=== PATIENT | female | born 1955 | race Caucasian/White ===

== ENCOUNTER 2022-03-14 00:25 | Day surgery (SDC) | payer MEDICARE, SELFPAY ==
[2022-02-28 08:27] VITALS: BMI 22.2
--- NOTE | 2022-03-13 12:34 | WPDANESEPPF ---
Anes - Initial Pre Proc Eval Procedure: Operation Date: 03/14/22 09:30 Proposed Procedures p Screening Colonoscopy - Dillon Eldridge MD Date/Time: 03/13/22 12:34 Surgeon: Dillon Eldridge MD Pre Op Diagnosis: hx of colon polyps Patient Data Age: 66 Gender: F Height: 1.6 m Weight: 57 kg Allergies Allergy/AdvReac Type Severity Reaction Status Date / Time CERUMIX Allergy Intermediate RASH Uncoded 03/14/22 08:43 ITCHING IN EARS Home Medications Medication Instructions Recorded Confirmed Type calcium carbonate-vitamin D3 1 tablet PO DAILY 02/28/22 03/14/22 History [Calcium + D] glucos sul [id number] 1 cap PO DAILY 02/28/22 03/14/22 History [Glucosamine Chondroitin] levothyroxine 125 mcg PO DAILY 02/28/22 03/14/22 History metoprolol succinate 25 mg PO DAILY 02/28/22 03/14/22 History Patient hx anesthesia problems: none Family hx anesthesia problems: none Results Review: All pre-operative results and documents have been reviewed as part of the pre-operative evaluation. [facility] Past Medical History Medical History (Updated 03/14/22 @ 09:30 by Dillon Eldridge MD) Hypothyroidism Irregular heart beat Social History Social History Smoking status: Never smoker Alcohol intake: current Alcohol use details: seldom Living arrangements: with family Spiritual care concerns: No Anes - Eval Final PreProcedure Day of Procedure 03/13/22 12:34 Patient weight: normal Heart: regular rate and rhythm Lungs: clear to auscultation and normal air movement Airway: Mallampati scale class II Neurological: alert and oriented Last oral intake: >/= 8 hours ASA classification: II Emergent: no Anesthetic plan: proceed Anesthesia type and monitoring: general GIVS and standard monitoring Results Review: All pre-operative results and documents have been reviewed as part of the pre-operative evaluation. Informed Consent: The patient's anesthetic plan and its attendant risks and benefits were discussed with the patient/family/POA. Questions were solicited and answers provided to the satisfaction of the patient/family/POA.
[2022-03-14 08:44] VITALS: BP 137/90; PULSE 91; RESP 16; TEMP 36.6; O2SAT 99
[2022-03-14] MEDS: LACTATED RINGERS 1,000 ML 150 ML IV CONT (08:53)
--- NOTE | 2022-03-14 09:28 | P.CONGI_ITS ---
Assessment and Plan Assessment and plan (1) History of colon polyps: Code(s): Z86.010 - Personal history of colonic polyps Status: Acute Assessment and Plan: Patient had benign colon polyp removed from the colon 2017 plan is for surveillance at this time further recommendations will be given after endoscopy. (2) Family history of colonic polyps: Code(s): Z83.71 - Family history of colonic polyps Status: Acute Assessment and Plan: Patient's sister has been identified as having colon polyps. Plan for surveillance colonoscopy at intervals in the future. Initially at 5 year intervals suggested. GI Consult Note Consult date/time: 03/14/22 09:28 HPI: Lalitha Bliss is a 66 year old female Presents for screening colonoscopy . Patient and has a history of a small benign colon polyp removed in 2017. Family history is significant her sister has had colon polyps. Patient states that her current weight appetite bowel movements are normal. She denies abdominal pain. She has had no bleeding. She presents today for neoplasia screening. Review of Systems Review of Systems: All systems reviewed & are unremarkable except as noted in HPI and below PMFSH Past Medical History Medical History (Updated 03/14/22 @ 09:30 by Dillon Eldridge MD) Hypothyroidism Irregular heart beat Social History Social History Smoking status: Never smoker Alcohol intake: current Alcohol use details: seldom Living arrangements: with family Spiritual care concerns: No Meds Home Medications and Allergies Home Medications Medication Instructions Recorded Confirmed Type calcium carbonate-vitamin D3 1 tablet PO DAILY 02/28/22 03/14/22 History [Calcium + D] glucos sul [id number] 1 cap PO DAILY 02/28/22 03/14/22 History [Glucosamine Chondroitin] levothyroxine 125 mcg PO DAILY 02/28/22 03/14/22 History metoprolol succinate 25 mg PO DAILY 02/28/22 03/14/22 History Allergies Allergy/AdvReac Type Severity Reaction Status Date / Time CERUMIX Allergy Intermediate RASH Uncoded 03/14/22 08:43 ITCHING IN EARS Vital Signs Vital Signs - 24 hr 03/14/22 08:44 Temperature 97.9 F Pulse Rate 91 Respiratory Rate 16 Blood Pressure 137/90 Pulse Oximetry 99 Exam Narrative: Physical exam reveals patient to be alert. vital signs are stable. HEENT exam is unremarkable. Patient is anicteric. Lungs are clear to auscultation and percussion. Heart is without murmur or extra sounds. Abdominal exam is soft nontender with no hepatosplenomegaly. Digital external rectal exam is normal.
[2022-03-14 09:56] VITALS: BP 112/70; PULSE 71; RESP 18; O2SAT 100
[2022-03-14 10:06] VITALS: BP 125/100; PULSE 72; RESP 16; O2SAT 100
[2022-03-14 10:16] VITALS: BP 121/76; PULSE 65; RESP 18; O2SAT 100
== END 2022-03-14 10:20 | disposition home or self-care (01) ==
PROVIDERS: PCP Family Medicine; Visit Provider Internal Medicine Gastroenterology
PROC: 0DJD8ZZ Inspection of Lower Intestinal Tract, Via Natural or Artificial Opening Endoscopic (ICD-10-PCS; CPT 45378; principal; 2022-03-14 09:30)
DX: Z12.11 Encounter for screening for malignant neoplasm of colon (principal); K64.8 Other hemorrhoids; Z86.010 Personal history of colon polyps; Z83.71 Family history of colonic polyps; E03.9 Hypothyroidism, unspecified
CPT/HCPCS: G0105; J2704; J7120